=== PATIENT | female | born 1965 | race Caucasian/White ===

== ENCOUNTER 2025-04-11 10:01 | Outpatient (CLI) | payer MEDICARE, SELFPAY ==
--- NOTE | ~2025-04-11 | CT_ITS ---
EXAMINATION: CT abdomen pelvis wo con DATE: 04/11/2025 10:35 INDICATION: Bilateral flank pain. TECHNIQUE: Computed tomography (CT) of the abdomen and pelvis was performed without intravenous contrast. Automated exposure control and iterative reconstruction technique were employed. The dose-length product was 1072.04 mGy-cm. COMPARISON: None. FINDINGS: The visualized portions of the lung bases demonstrate mild atelectasis. No pleural effusion. Breast implants are noted. The heart size is normal. No pericardial effusion. The liver, gallbladder, spleen, pancreas, adrenal glands are normal. There is a 9 mm cyst in right kidney. Left kidney is normal. There is no urolithiasis. There is a large volume of stool in the colon. There are no dilated loops of bowel. The appendix is normal. There are no pathologically enlarged lymph nodes. There is no free intraperitoneal fluid. There is a right periumbilical ventral hernia containing fat. There is thoracolumbar levoscoliosis. There are changes of anterior fusion procedures from L1-L2 through L5-S1. There are changes of posterior fusion procedures from T11 to L1 and from L2 to S1. There is moderate thoracic spondylosis. IMPRESSION: 1. No urolithiasis. Reviewed, dictated and finalized at location E. IMPRESSION: 1. No urolithiasis.
== END 2025-04-11 10:02 | disposition home or self-care (01) ==
PROVIDERS: PCP Physician Assistant; Visit Provider Physician Assistant
DX: R10.A3 Flank pain, bilateral (principal)
CPT/HCPCS: 74176